=== PATIENT | male | born 1985 | race African-American/Black ===

== ENCOUNTER 2019-11-23 07:36 | Emergency (ER) | payer MEDICAID, OTHER ==
[2019-11-23 07:43] VITALS: BP 157/93; PULSE 83; RESP 18; TEMP 98.1
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
[2019-11-23] MEDS ORDERED: traMADol 50 MG STARTER PACK 3 TAB BTL PO STA (08:17)
[2019-11-23] MEDS ORDERED: IBUPROFEN 600 MG TAB PO STA (08:17)
--- NOTE | 2019-11-23 08:24 | XR ---
EXAMINATION TYPE: XR hand complete RT DATE OF EXAM: 11/23/2019 CLINICAL HISTORY: pain TECHNIQUE: Frontal, lateral and oblique images of the right hand are obtained. COMPARISON: None. FINDINGS: There is no acute fracture/dislocation evident. The joint spaces appear within normal limi ts. Soft tissue swelling overlying the dorsum of the hand. IMPRESSION: There is no acute fracture or dislocation ICD 10 NO FRACTURE, INITIAL EVALUATION
--- NOTE | 2019-11-23 08:25 | XR ---
EXAMINATION TYPE: XR wrist complete RT DATE OF EXAM: 11/23/2019 CLINICAL HISTORY: pain TECHNIQUE: Frontal, lateral and oblique images of the right wrist are obtained. COMPARISON: None. FINDINGS: There is no acute fracture/dislocation evident. The joint spaces appear within normal limits. The o verlying soft tissue appears unremarkable. IMPRESSION: There is no acute fracture or dislocation seen. ICD 10 NO FRACTURE, INITIAL EVALUATION
== END 2019-11-23 09:23 | disposition home or self-care (01) ==
LOC: EC 07:36
DX: S60.221A Contusion of right hand, initial encounter (principal); F17.200 Nicotine dependence, unspecified, uncomplicated; V47.5XXA Car driver injured in collision with fixed or stationary object in traffic accident, initial encounter; Y92.410 Unspecified street and highway as the place of occurrence of the external cause; Y93.89 Activity, other specified
CPT/HCPCS: 29125; 99284

== ENCOUNTER 2020-04-02 14:35 | Inpatient (IN) | payer MEDICAID, OTHER ==
[2020-04-02] MEDS ORDERED: SODIUM CHLORIDE 0.9% 1,000 ML IV STA (15:14)
--- NOTE | 2020-04-02 15:24 | ED ---
General Adult HPI - General Chief complaint: Seizure Stated complaint: Seizures Time Seen by Provider: 04/02/20 14:48 Source: patient, EMS, RN notes reviewed Mode of arrival: EMS Limitations: no limitations - History of Present Illness Initial comments: 35-year-old male with a past medical history of pneumothorax presents to the emergency room for possible seizure. Patient was apparently dropping off his children at the end of his driveway. He was walking back up his driveway when patient apparently lost consciousness. He does not recall any lightheadedness or dizziness preceding this. This was witnessed and according to his cousin patient was jerking for about 2 minutes before he came to. Patient did not lose bladder or bowel function. Patient did not bite his tongue. Patient was post ictal on EMS arrival to the scene. Patient has no other complaints at this time including shortness of breath, chest pain, abdominal pain, nausea or vomiting, headache, or visual changes. - Related Data Previous Rx's Medication Instructions Recorded Mirtazapine [Remeron] 15 mg PO HS #30 tab 04/09/14 Ibuprofen [Motrin] 600 mg PO Q6HR PRN #20 tab 11/23/19 Allergies Allergy/AdvReac Type Severity Reaction Status Date / Time No Known Allergies Allergy Verified 11/23/19 07:43 Review of Systems ROS Statement: Those systems with pertinent positive or pertinent negative responses have been documented in the HPI. ROS Other: All systems not noted in ROS Statement are negative. Past Medical History Past Medical History: No Reported History Additional Past Medical History / Comment(s): PNEUMOTHORAX History of Any Multi-Drug Resistant Organisms: None Reported Additional Past Surgical History / Comment(s): LEFT ARM SURGERY, Past Anesthesia/Blood Transfusion Reactions: No Reported Reaction Past Psychological History: Anxiety, Depression Past Alcohol Use History: Occasional Past Drug Use History: Marijuana General Exam Limitations: no limitations General appearance: alert, in no apparent distress Head exam: Present: atraumatic, normocephalic, normal inspection Eye exam: Present: normal appearance, PERRL, EOMI. Absent: scleral icterus, conjunctival injection, periorbital swelling ENT exam: Present: normal exam, mucous membranes moist Neck exam: Present: normal inspection, full ROM. Absent: tenderness, men ingismus, lymphadenopathy Respiratory exam: Present: normal lung sounds bilaterally. Absent: respiratory distress, wheezes, rales, rhonchi, stridor Cardiovascular Exam: Present: regular rate, normal rhythm, normal heart sounds. Absent: systolic murmur, diastolic murmur, rubs, gallop, clicks Neurological exam: Present: alert, oriented X3, other (GCS 15) Course Vital Signs 04/02/20 14:38 Temperature 98.8 F Pulse Rate 102 H Respiratory 18 Rate Blood Pressure 151/98 O2 Sat by Pulse 97 Oximetry EKG Findings - EKG Comments: EKG Findings:: Normal sinus rhythm, ventricular rate 95, AR interval 146, QTC 452 Medical Decision Making - Medical Decision Making Upon further history patient reports that he quit drinking alcohol 2 days ago because of his probation. Reports he was drinking a fifth a day until that time. Patient likely had an alcohol withdrawal related seizure. CBC is unremarkable. CMP does show some hyperbilirubinemia and transaminitis consistent with chronic alcoholism. Urinalysis does show hematuria, patient denies abdominal or back pain. Patient was started on CIWA protocol. Will be admitted for further management. pipe assembly worker consulted. - Lab Data Result diagrams: 04/02/20 15:18 04/02/20 15:18 Lab Results 04/02/20 04/02/20 04/02/20 Range/Units 15:18 15:18 16:03 WBC 7.3 (3.8-10.6) k/uL RBC 5.01 (4.30-5.90) m/uL Hgb 15.7 (13.0-17.5) gm/dL Hct 47.7 (39.0-53.0) % MCV 95.2 (80.0-100.0) fL MCH 31.3 (25.0-35.0) pg MCHC 32.9 (31.0-37.0) g/dL RDW 14.6 (11.5-15.5) % Plt Count 211 (150-450) k/uL Neutrophils % 73 % Lymphocytes % 18 % Monocytes % 6 % Eosinophils % 0 % Basophils % 1 % Neutrophils # 5.4 (1.3-7.7) k/uL Lymphocytes # 1.3 (1.0-4.8) k/uL Monocytes # 0.5 (0-1.0) k/uL Eosinophils # 0.0 (0-0.7) k/uL Basophils # 0.0 (0-0.2) k/uL Sodium 135 L (137-145) mmol/L Potassium 3.4 L (3.5-5.1) mmol/L Chloride 101 (98-107) mmol/L Carbon Dioxide 23 (22-30) mmol/L Anion Gap 11 mmol/L BUN 9 (9-20) mg/dL Creatinine 0.90 (0.66-1.25) mg/dL Est GFR (CKD-EPI)AfAm >90 (>60 ml/min/1.73 sqM) Est GFR (CKD-EPI)NonAf >90 (>60 ml/min/1.73 sqM) Glucose 112 H (74-99) mg/dL Calcium 9.9 (8.4-10.2) mg/dL Magnesium 1.6 (1.6-2.3) mg/dL Total Bilirubin 2.7 H (0.2-1.3) mg/dL AST 134 H (17-59) U/L ALT 36 (4-49) U/L Alkaline Phosphatase 97 (38-126) U/L Total Protein 7.4 (6.3-8.2) g/dL Albumin 4.8 (3.5-5.0) g/dL Urine Color Light Red Urine Appearance Cloudy (Clear) Urine pH 7.0 (5.0-8.0) Ur Specific [place] 1.021 (1.001-1.035) Urine Protein 1+ H (Negative) Urine Glucose (UA) Negative (Negative) Urine Ketones Trace H (Negative) Urine Blood Large H (Negative) Urine Nitrite Negative (Negative) Urine Bilirubin Negative (Negative) Urine Urobilinogen 4.0 (<2.0) mg/dL Ur Leukocyte Esterase Moderate H (Negative) Urine RBC >182 H (0-5) /hpf Urine WBC 35 H (0-5) /hpf Ur Squamous Epith Cells 1 (0-4) /hpf Hyaline Casts 22 H (0-2) /lpf Urine Mucus Few H (None) /hpf Urine Opiates Screen Not Detected (NotDetected) Ur Oxycodone Screen Not Detected (NotDetected) Urine Methadone Screen Not Detected (NotDetected) Ur Propoxyphene Screen Not Detected (NotDetected) Ur Barbiturates Screen Not Detected (NotDetected) U Tricyclic Antidepress Not Detected (NotDetected) Ur Phencyclidine Scrn Not Detected (NotDetected) Ur Amphetamines Screen Not Detected (NotDetected) U Methamphetamines Scrn Not Detected (NotDetected) U Benzodiazepines Scrn Not Detected (NotDetected) Urine Cocaine Screen Not Detected (NotDetected) U Marijuana (THC) Screen Not Detected (NotDetected) Serum Alcohol <10 mg/dL Disposition Clinical Impression: Alcohol withdrawal, Alcohol withdrawal seizure Disposition: ADMITTED IP TO THIS HOSP Condition: Fair Is patient prescribed a controlled substance at d/c from ED?: No Referrals: None,Stated [Primary Care Provider] - 1-2 days Time of Disposition: 16:33
[2020-04-02 15:31] LABS: Basophils % (A) 1 %; Eosinophils % (A) 0 %; HCT 47.7 % (39.0-53.0); HGB 15.7 gm/dL (13.0-17.5); Lymphocytes # (A) 1.3 k/uL (1.0-4.8); Lymphocytes % (A) 18 %; MCH 31.3 pg (25.0-35.0); MCHC 32.9 g/dL (31.0-37.0); MCV 95.2 fL (80.0-100.0); Mean Platelet Volume 7.5; Monocytes # (A) 0.5 k/uL (0-1.0); Monocytes % (A) 6 %; Neutrophils # (A) 5.4 k/uL (1.3-7.7); Neutrophils % (A) 73 %; Platelet Count 211 k/uL (150-450); RBC 5.01 m/uL (4.30-5.90); RDW 14.6 % (11.5-15.5); WBC 7.3 k/uL (3.8-10.6)
[2020-04-02 15:50] LABS: ALT 36 U/L (4-49); AST 134 U/L (17-59); African American GFR (CKD) >90 (>60 ml/min/1.73 sqM); Albumin 4.8 g/dL (3.5-5.0); Alcohol <10 mg/dL; Alkaline Phosphatase 97 U/L (38-126); Anion Gap 11 mmol/L; Blood Urea Nitrogen 9 mg/dL (9-20); Calcium 9.9 mg/dL (8.4-10.2); Carbon Dioxide 23 mmol/L (22-30); Chloride 101 mmol/L (98-107); Glucose 112 mg/dL (74-99); Magnesium 1.6 mg/dL (1.6-2.3); Non-African American GFR(CKD) >90 (>60 ml/min/1.73 sqM); Potassium 3.4 mmol/L (3.5-5.1); Sodium 135 mmol/L (137-145); Total Bilirubin 2.7 mg/dL (0.2-1.3); Total Protein 7.4 g/dL (6.3-8.2)
--- NOTE | 2020-04-02 15:50 | CT ---
EXAMINATION TYPE: CT brain wo con DATE OF EXAM: 04/02/2020 COMPARISON: CT brain April 20, 2013 HISTORY: Seizure activity. Pt states LOC but no hx of seizures CT DLP: 1202.4 mGycm. Automated Exposure Control for Dose Reduction was Utilized. TECHNIQUE: CT scan of the head is performed without contrast. FINDINGS: There is no acute intracranial hemorrhage, mass effect, or midline shift identified. The ventricles and sulci are within normal limits in size. Patel-white matter differentiation is maintain ed. The globes are intact and the visualized sinuses are clear. The calvarium is intact. IMPRESSION: No acute intracranial hemorrhage or midline shift is seen. No significant change from pr ior.
--- NOTE | 2020-04-02 15:51 | XR ---
EXAMINATION TYPE: XR chest 2V DATE OF EXAM: 04/02/2020 COMPARISON: Chest x-ray September 04, 2013. HISTORY: Seizure and weakness. TECHNIQUE: Frontal and lateral views of the chest are obtained. FINDINGS: There is no focal air space opacity, pleural effusion, or pneumothorax seen. Diminished in spiration on current study with new mild cardiomegaly. Overlying EKG leads are present currently. Th e osseous structures are intact. IMPRESSION: Mild cardiomegaly without acute pulmonary process. Finding may be exaggerated by poor in spiration.
[2020-04-02] MEDS ORDERED: LORazepam 2 MG/ML INJ IV STA (16:04)
[2020-04-02 16:18] LABS: Appearance,Urine Cloudy (Clear); Bilirubin,Urine Negative (Negative); Blood,Urine Large (Negative); Color,Urine Light Red; Glucose,Urine (UA) Negative (Negative); Hyaline Casts,Urine 22 /lpf (0-2); Ketones,Urine Trace (Negative); Leukocyte Esterase,Urine Moderate (Negative); Mucus,Urine Few /hpf; Nitrite,Urine Negative (Negative); Protein,Urine 1+ (Negative); RBC,Urine >182 /hpf (0-5); Specific Gravity,Urine 1.021 (1.001-1.035); Squamous Epithelial Cell,Urine 1 /hpf (0-4); WBC,Urine 35 /hpf (0-5)
[2020-04-02 16:20] LABS: Amphetamine Screen,Urine Not Detected (NotDetected); Barbiturate Screen,Urine Not Detected (NotDetected); Benzodiazepines Screen,Urine Not Detected (NotDetected); Cocaine Screen,Urine Not Detected (NotDetected); Methadone Screen, Urine Not Detected (NotDetected); Opiate Screen,Urine Not Detected (NotDetected); Oxycodone Screen, Urine Not Detected (NotDetected); Phencyclidine Screen,Urine Not Detected (NotDetected); Tricyclic Antidepressant,Urine Not Detected (NotDetected); Urn Cannabinoid Scrn Not Detected (NotDetected)
[2020-04-02] MEDS ORDERED: NALOXONE 0.4 MG/ML 1 ML VIAL IV PRN (16:28)
[2020-04-02] MEDS ORDERED: THIAMINE 100 MG/ML 2 ML VIAL IM STA (16:29)
[2020-04-02] MEDS ORDERED: LORazepam 2 MG/ML INJ IV PRN ×3 (16:29)
[2020-04-02] MEDS: SODIUM CHLORIDE 0.9% 1,000 ML IV SCH (17:26)
[2020-04-02] MEDS: DIAZEPAM 5 MG/ML 2 ML INJ IVP SCH (17:27)
[2020-04-02] MEDS: PENICILLIN V POTASSIUM 250 MG TAB PO SCH ×2 (17:27→23:37)
[2020-04-02] MEDS: THIAMINE 100 MG TAB PO SCH (18:46)
[2020-04-02] MEDS ORDERED: POTASSIUM CHLORIDE ER 20 MEQ TAB.ER PO STA (21:27)
[2020-04-02] MEDS: NICOTINE 21MG/24HR PATCH TRANSDERM SCH (21:40)
[2020-04-03] MEDS: SODIUM CHLORIDE 0.9% 1,000 ML IV SCH ×4 (01:41→20:37)
[2020-04-03] MEDS: DIAZEPAM 5 MG/ML 2 ML INJ IVP SCH (01:42)
[2020-04-03] MEDS: PENICILLIN V POTASSIUM 250 MG TAB PO SCH ×4 (06:00→23:24)
[2020-04-03] MEDS: THIAMINE 100 MG TAB PO SCH ×2 (06:00→17:06)
[2020-04-03 07:47] LABS: African American GFR (CKD) >90 (>60 ml/min/1.73 sqM); Anion Gap 7 mmol/L; Blood Urea Nitrogen 7 mg/dL (9-20); Calcium 9.1 mg/dL (8.4-10.2); Carbon Dioxide 24 mmol/L (22-30); Chloride 106 mmol/L (98-107); Glucose 107 mg/dL (74-99); Non-African American GFR(CKD) >90 (>60 ml/min/1.73 sqM); Potassium 3.5 mmol/L (3.5-5.1); Sodium 137 mmol/L (137-145)
[2020-04-03] MEDS ORDERED: MAGNESIUM SULFATE-D5W PMX 1 GM in DEXTROSE/WATER 1 100ML.BAG IVPB ONE (08:44)
[2020-04-03] MEDS: ENOXAPARIN 40 MG/0.4 ML SYRINGE SQ SCH (09:15)
[2020-04-03] MEDS: NICOTINE 21MG/24HR PATCH TRANSDERM SCH (09:15)
[2020-04-03] MEDS: FAMOTIDINE 20 MG TAB PO SCH ×2 (09:15→20:37)
--- NOTE | 2020-04-03 09:35 | P.HPIM ---
History of Present Illness 35-year-old male with a past medical history of pneumothorax presents to the emergency room for possible syncope. Patient was apparently dropping off his children at the end of his driveway. He was walking back up his driveway when patient apparently lost consciousness. He does not recall any lightheadedness or dizziness preceding this. This was witnessed and according to his cousin patient was jerking for about 2 minutes before he came to. Patient did not lose bladder or bowel function. Patient did havetongue. Patient was post ictal on EMS arrival to the scene. Patient has no other complaints at this time including shortness of breath, chest pain, abdominal pain, nausea or vomiting, headache, or visual changes.patient is an alcoholic was drinking about one fifth of alcohol everyday quit drinking 5 days ago. Review of Systems REVIEW OF SYSTEMS: CONSTITUTIONAL: No fever, no malaise, no fatigue. HEENT: No recent visual problems or hearing problems. Denied any sore throat. CARDIOVASCULAR: No chest pain, orthopnea, PND, no palpitations. PULMONARY: No shortness of breath, no cough, no hemoptysis. GASTROINTESTINAL: No diarrhea, no nausea, no vomiting, no abdominal pain. NEUROLOGICAL: No headaches, no weakness, no numbness. HEMATOLOGICAL: Denies any bleeding or petechiae. GENITOURINARY: Denies any burning micturition, frequency, or urgency. MUSCULOSKELETAL/RHEUMATOLOGICAL: Denies any joint pain, swelling, or any muscle pain. ENDOCRINE: Denies any polyuria or polydipsia. The rest of the 14-point review of systems is negative. Past Medical History Past Medical History: No Reported History Additional Past Medical History / Comment(s): PNEUMOTHORAX History of Any Multi-Drug Resistant Organisms: None Reported Past Surgical History: No Surgical Hx Reported Additional Past Surgical History / Comment(s): LEFT ARM SURGERY, Past Anesthesia/Blood Transfusion Reactions: No Reported Reaction Past Psychological History: Anxiety, Depression Smoking Status: Current every day smoker Past Alcohol Use History: Daily Past Drug Use History: Marijuana - Past Family History Father Family Medical History: Unable to Obtain Mother Family Medical History: Coronary Artery Disease (CAD) Medications and Allergies Home Medications Medication Instructions Recorded Confirmed Type Loratadine [Claritin] 10 mg PO DAILY PRN 04/02/20 04/02/20 History diphenhydrAMINE [Benadryl] 25 mg PO DAILY PRN 04/02/20 04/02/20 History Allergies Allergy/AdvReac Type Severity Reaction Status Date / Time No Known Allergies Allergy Verified 04/02/20 16:54 Physical Exam Vitals: Vital Signs Temp Pulse Pulse Resp BP BP Pulse Ox 04/03/20 04:00 99.2 F 86 18 149/88 98 04/03/20 00:00 63 17 163/104 99 04/02/20 20:39 98.6 F 104 H 16 162/104 98 04/02/20 20:00 98.6 F 104 H 16 162/104 98 04/02/20 18:46 98.4 F 91 20 159/96 98 04/02/20 16:50 98.6 F 88 18 148/80 98 04/02/20 14:38 98.8 F 102 H 18 151/98 97 Intake and Output 04/02/20 04/03/20 04/03/20 22:59 06:59 14:59 Intake Total 1350 240 Balance 1350 240 Intake: IV 1350 Sodium Chloride 0.9% 1, 1350 000 ml @ 150 mls/hr IV . Q6H40M [facility] Rx#:[id number] Oral 240 Other: Voiding Method Toilet # Voids 1 1 Weight 81.647 kg 82.1 kg PHYSICAL EXAMINATION: GENERAL: The patient is alert and oriented x3, not in any acute distress. Well developed, well nourished. patient does have some tremor HEENT: Pupils are round and equally reacting to light. EOMI. No scleral icterus. No conjunctival pallor. Normocephalic, atraumatic. No pharyngeal erythema. No thyromegaly. CARDIOVASCULAR: S1 and S2 present. No murmurs, rubs, or gallops. PULMONARY: Chest is clear to auscultation, no wheezing or crackles. ABDOMEN: Soft, nontender, nondistended, normoactive bowel sounds. No palpable organomegaly. MUSCULOSKELETAL: No joint swelling or deformity. EXTREMITIES: No cyanosis, clubbing, or pedal edema. NEUROLOGICAL: Gross neurological examination did not reveal any focal deficits. SKIN: No rashes. Results CBC & Chem 7: 04/02/20 15:18 04/03/20 07:04 Labs: Abnormal Lab Results - Last 24 Hours (Table) 04/02/20 04/02/20 04/03/20 Range/Units 15:18 16:03 07:04 Sodium 135 L (137-145) mmol/L Potassium 3.4 L (3.5-5.1) mmol/L BUN 7 L (9-20) mg/dL Glucose 112 H 107 H (74-99) mg/dL Total Bilirubin 2.7 H (0.2-1.3) mg/dL AST 134 H (17-59) U/L Urine Protein 1+ H (Negative) Urine Ketones Trace H (Negative) Urine Blood Large H (Negative) Ur Leukocyte Esterase Moderate H (Negative) Urine RBC >182 H (0-5) /hpf Urine WBC 35 H (0-5) /hpf Hyaline Casts 22 H (0-2) /lpf Urine Mucus Few H (None) /hpf Microbiology - Last 24 Hours (Table) 04/02/20 16:03 Urine Culture - Preliminary Urine,Voided Thrombosis Risk Factor Assmnt - Choose All That Apply Any of the Below Risk Factors Present?: Yes Each Factor Represents 1 point: Obesity (BMI >25) Other Risk Factors: No Other congenital or acquired thrombophilia - If yes, enter type in comment: No Thrombosis Risk Factor Assessment Total Risk Factor Score: 1 Thrombosis Risk Factor Assessment Level: Low Risk Assessment and Plan Plan: -possible seizure or syncope: We'll obtain EEG sleep and awake patient may have alcohol withdrawal seizure. Patient will be continued on all call withdrawal precautions. Patient last drink was 5 days so probably he is to worse and off alcohol withdrawal. 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
[2020-04-04] MEDS: IBUPROFEN 600 MG TAB PO PRN ×2 (02:08→13:37)
[2020-04-04] MEDS: THIAMINE 100 MG TAB PO SCH (05:57)
[2020-04-04] MEDS: PENICILLIN V POTASSIUM 250 MG TAB PO SCH ×2 (05:57→13:37)
[2020-04-04 08:11] LABS: ALT 34 U/L (4-49); AST 60 U/L (17-59); African American GFR (CKD) >90 (>60 ml/min/1.73 sqM); Albumin 4.3 g/dL (3.5-5.0); Alkaline Phosphatase 104 U/L (38-126); Anion Gap 6 mmol/L; Blood Urea Nitrogen 9 mg/dL (9-20); Calcium 9.3 mg/dL (8.4-10.2); Carbon Dioxide 25 mmol/L (22-30); Chloride 107 mmol/L (98-107); Glucose 83 mg/dL (74-99); Magnesium 1.9 mg/dL (1.6-2.3); Non-African American GFR(CKD) >90 (>60 ml/min/1.73 sqM); Potassium 3.9 mmol/L (3.5-5.1); Sodium 138 mmol/L (137-145); Total Bilirubin 1.3 mg/dL (0.2-1.3); Total Protein 7.1 g/dL (6.3-8.2)
[2020-04-04] MEDS: NICOTINE 21MG/24HR PATCH TRANSDERM SCH (08:36)
[2020-04-04] MEDS: FAMOTIDINE 20 MG TAB PO SCH (08:36)
[2020-04-04] MEDS: ENOXAPARIN 40 MG/0.4 ML SYRINGE SQ SCH (08:36)
[2020-04-04] MEDS: SODIUM CHLORIDE 0.9% 1,000 ML IV SCH (08:37)
[2020-04-04 08:41] VITALS: RESP 16; TEMP 97.6
--- NOTE | 2020-04-04 11:20 | P.DS ---
Providers Date of admission: 04/02/20 16:28 Attending physician: Joel Rodríguez Primary care physician: Stated None Hospital Course: 35-year-old male with a past medical history of pneumothorax presents to the emergency room for possible syncope. Patient was apparently dropping off his children at the end of his driveway. He was walking back up his driveway when patient apparently lost consciousness. He does not recall any lightheadedness or dizziness preceding this. This was witnessed and according to his cousin patient was jerking for about 2 minutes before he came to. Patient did not lose bladder or bowel function. Patient did havetongue. Patient was post ictal on EMS arrival to the scene. Patient has no other complaints at this time including shortness of breath, chest pain, abdominal pain, nausea or vomiting, headache, or visual changes.patient is an alcoholic was drinking about one fifth of alcohol everyday quit drinking 5 days ago. 04/04/2020 Patient doesn't have any significant withdrawals today patient will undergo EEG if that's negative patient will be discharged patient probably has alcohol withdrawal seizures.patient's liver enzymes are better. PHYSICAL EXAMINATION: GENERAL: The patient is alert and oriented x3, not in any acute distress. Well developed, well nourished. HEENT: Pupils are round and equally reacting to light. EOMI. No scleral icterus. No conjunctival pallor. Normocephalic, atraumatic. No pharyngeal erythema. No thyromegaly. CARDIOVASCULAR: S1 and S2 present. No murmurs, rubs, or gallops. PULMONARY: Chest is clear to auscultation, no wheezing or crackles. ABDOMEN: Soft, nontender, nondistended, normoactive bowel sounds. No palpable organomegaly. MUSCULOSKELETAL: No joint swelling or deformity. EXTREMITIES: No cyanosis, clubbing, or pedal edema. NEUROLOGICAL: Gross neurological examination did not reveal any focal deficits. SKIN: No rashes. Assessment and Plan Plan: -possible seizure : EEG is pending was negative the EEG results if it's normal patient will be discharged today -Possibly of syncope , echocardiac time is pending andabnormalityontelemetryovernight. -Alcohol abuse -alcohol withdrawal: Management as mentioned above thiamine multivitamin supplementation -mild alcoholic hepatitisimproved -Hyponatremia: improved -Hypokalemia : Replaced Patient Condition at Discharge: Fair Plan - Discharge Summary Discharge Rx Participant: Yes New Discharge Prescriptions: New Amoxic-Pot Clav 875-125Mg [Augmentin 875-125] 1 tab PO Q12HR 5 Days #10 tab No Action diphenhydrAMINE [Benadryl] 25 mg PO DAILY PRN PRN Reason: Allergy Symptoms Loratadine [Claritin] 10 mg PO DAILY PRN PRN Reason: Allergy Symptoms Discharge Medication List Loratadine [Claritin] 10 mg PO DAILY PRN 04/02/20 [History] diphenhydrAMINE [Benadryl] 25 mg PO DAILY PRN 04/02/20 [History] Amoxic-Pot Clav 875-125Mg [Augmentin 875-125] 1 tab PO Q12HR 5 Days #10 tab 04/04/20 [Rx] Follow up Appointment(s)/Referral(s): Alex Najera MD [REFERRING] - 1 Week Patient Instructions/Handouts: Alcohol Withdrawal (DC) Discharge Disposition: HOME SELF-CARE
[2020-04-04 11:38] VITALS: BP 154/102; PULSE 60
--- NOTE | 2020-04-04 12:01 | ECHOF ---
Referral Reason:syncope MEASUREMENTS -------- HEIGHT: 180.3 cm WEIGHT: 82.5 kg BP: 169/107 IVSd: 1.2 cm (0.6 - 1.1) LVIDd: 4.2 cm (3.9 - 5.3) LVPWd: 1.3 cm (0.6 - 1.1) EDV(Teich): 80 ml IVSs: 2.2 cm LVIDs: 2.9 cm LVPWs: 1.9 cm %IVS Thck: 81 % ESV(Teich): 31 ml EF(Teich): 61 % %FS: 32 % SV(Teich): 49 ml RVIDd: 3.2 cm (< 3.3) IVC: 14.99 mm LALs A4C: 4.9 cm LAAs A4C: 14.1 cm LAESV A-L A4C: 34 ml LAESV MOD A4C: 32 ml LALs A2C: 4.3 cm LAAs A2C: 12.2 cm LAESV A-L A2C: 29 ml LAESV MOD A2C: 27 ml LAESV(A-L): 33 ml LAESV Index (A-L): 16.48 ml/m Ao Diam: 3.1 cm (2.0 - 3.7) LA Diam: 3.4 cm (2.7 - 3.8) AV Cusp: 2.2 cm (1.5 - 2.6) EPSS: 1.0 cm MV E Oc: 0.38 m/s MV DecT: 191 ms MV Dec [place]: 2.0 m/s MV A Oc: 0.64 m/s MV E/A Ratio: 0.59 MV PHT: 55 ms MR Vmax: 0.73 m/s MR maxP.14 mmHg AV Vmax: 0.77 m/s AV maxP.40 mmHg TR Vmax: 0.93 m/s TR maxP.46 mmHg RAP: 5.00 mmHg RVSP: 8.46 mmHg MV EF SLOPE: 0.00 mm/s (70 - 150) MV EXCURSION: 18.05 mm (> 18.000) FINDINGS -------- This was a technically good study. The left ventricular size is normal. There is mild concentric left ventricular hypertrophy. Overa ll left ventricular systolic function is normal with, an EF between 55 - 60 %. The diastolic fillin g pattern is normal for the age of the patient 5.74. The right ventricle is normal in size. RV Promident The left atrial size is normal. Normal LA size by volume 22+/-6 ml/m2. The right atrial size is normal. Interatrial and interventricular septum intact. The aortic valve is trileaflet and appears structurally normal. The mitral valve is normal. There is trace mitral regurgitation. The tricuspid valve appears structurally normal. Trace tricuspid regurgitation present. Right sergio tricular systolic pressure is normal at < 35 mmHg. There is no pulmonic regurgitation present. The aortic root size is normal. Normal inferior vena cava with normal inspiratory collapse consistent with estimated right atrial pre ssure of 5 mmHg. There is no pericardial effusion. CONCLUSIONS -------- 1. The left ventricular size is normal. 2. There is mild concentric left ventricular hypertrophy. 3. Overall left ventricular systolic function is normal with, an EF between 55 - 60 %. 4. The diastolic filling pattern is normal for the age of the patient 5.74 5. There is trace mitral regurgitation. 6. Trace tricuspid regurgitation present. 7. There is no pericardial effusion. RN VISITING: Xiomara Rodriguez RDCS
--- NOTE | 2020-04-04 13:07 | EEG ---
ELECTROENCEPHALOGRAM REPORT DATE OF SERVICE: 04/04/2020 . PREAMBLE: This is a 35-year-old male with alcohol withdrawal seizure. This study is performed to evaluate for any epileptiform activity. EEG FINDINGS: This is a 21 channel EEG recording utilizing 10-20 international system with referential and bipolar montages. Background consists of well developed, well regulated, moderate voltage activity in 8-9 hertz alpha. Background is posterior dominant and reactive to eye opening and closing. Photic driving response was seen with some flash frequencies. Drowsiness was seen with appearance of bilaterally symmetric theta frequency rhythm. Some brief stage 2 sleep was seen with presence of some vertex waves. Sweat artifact is noted. No focal or generalized epileptiform activity was seen. EKG rhythm lead revealed no obvious arrhythmia. IMPRESSION: This is a normal EEG during wakefulness, drowsiness, and some stage 2 sleep. MMCLAYTONL / IJN: [id number] / MTDD
== END 2020-04-04 15:50 | disposition home or self-care (01) | DRG 897 ==
LOC: EC 14:35 → 3SCARD 16:28
PROVIDERS: ADMIT Internal Medicine; ATTEND Internal Medicine
DX: F10.230 Alcohol dependence with withdrawal, uncomplicated (principal); E87.1 Hypo-osmolality and hyponatremia; R56.9 Unspecified convulsions; K70.10 Alcoholic hepatitis without ascites; E87.6 Hypokalemia; F41.9 Anxiety disorder, unspecified; F32.9 Major depressive disorder, single episode, unspecified; R31.9 Hematuria, unspecified; K04.7 Periapical abscess without sinus; F17.200 Nicotine dependence, unspecified, uncomplicated; R55 Syncope and collapse; Y90.0 Blood alcohol level of less than 20 mg/100 ml; Z87.09 Personal history of other diseases of the respiratory system; Z98.890 Other specified postprocedural states; Z82.49 Family history of ischemic heart disease and other diseases of the circulatory system
CPT/HCPCS: 36415; 70450; 71046; 80048; 80053; 80306; 80320; 81001; 83735; 85025; 87086; 93005; 93306; 95816; 96361; 96372; 96374; 96375; 99285

== ENCOUNTER 2020-07-14 11:47 | Emergency (ER) | payer MEDICAID, OTHER ==
[2020-07-14] MEDS ORDERED: LIDOCAINE 1% INJ 10MG/ML (20 ML MDV) SQ ONE (12:07)
[2020-07-14] MEDS ORDERED: LORazepam 2 MG/ML INJ IM STA (12:15)
[2020-07-14] MEDS ORDERED: ACETAMINOPHEN TAB 500 MG TAB PO STA (12:38)
--- NOTE | 2020-07-14 13:03 | XR ---
EXAMINATION TYPE: XR chest 2V DATE OF EXAM: 07/14/2020 COMPARISON: 04/01/2020 HISTORY: 35-year-old male with fever TECHNIQUE: Frontal and lateral views FINDINGS: The cardiomediastinal silhouette, aorta, and pulmonary vasculature are within normal limits. Increase d retrosternal clear space and mild hyperinflation. Lungs and pleural spaces are clear. IMPRESSION: COPD with mild emphysema. No acute cardiopulmonary process.
[2020-07-14] MEDS ORDERED: DIPH,PERTUS(ACELL)TETVAC-LF 0.5 ML VIAL IM ONE (13:06)
--- NOTE | 2020-07-14 13:09 | ED ---
General Adult HPI - General Chief complaint: Wound/Laceration Stated complaint: Facial Injury Time Seen by Provider: 07/14/20 12:03 Source: patient, RN notes reviewed Mode of arrival: ambulatory Limitations: no limitations - History of Present Illness Initial comments: 35-year-old male presents to the emergency room for a chief complaint of fall. Patient states she was carrying a [place] tree in a box when he tripped over something on the floor and fell hitting his face against a stove. He did not lose consciousness. He did not hit his head. Patient states he was not lightheaded prior to this fall. Patient was noted to have a low-grade fever of 100.4 on arrival. He denies any cough congestion nausea vomiting diarrhea abdominal pain chest pain shortness of breath. He is very anxious to get stitches as he has never had these before.Patient has no other complaints at this time including shortness of breath, chest pain, abdominal pain, nausea or vomiting, headache, or visual changes. - Related Data Home Medications Medication Instructions Recorded Confirmed Loratadine [Claritin] 10 mg PO DAILY PRN 04/02/20 04/02/20 diphenhydrAMINE [Benadryl] 25 mg PO DAILY PRN 04/02/20 04/02/20 Previous Rx's Medication Instructions Recorded Amoxic-Pot Clav 875-125Mg 1 tab PO Q12HR 5 Days #10 tab 04/04/20 [Augmentin 875-125] Thiamine [Vitamin B-1] 100 mg PO DAILY #30 tab 04/04/20 Amoxicillin/Potassium Clav 1 tab PO Q12HR #20 tab 07/14/20 [Augmentin 875-125 Tablet] Allergies Allergy/AdvReac Type Severity Reaction Status Date / Time No Known Allergies Allergy Verified 07/14/20 11:52 Review of Systems ROS Statement: Those systems with pertinent positive or pertinent negative responses have been documented in the HPI. ROS Other: All systems not noted in ROS Statement are negative. Past Medical History Past Medical History: Seizure Disorder Additional Past Medical History / Comment(s): PNEUMOTHORAX History of Any Multi-Drug Resistant Organisms: None Reported Past Surgical History: No Surgical Hx Reported Additional Past Surgical History / Comment(s): LEFT ARM SURGERY, Past Anesthesia/Blood Transfusion Reactions: No Reported Reaction Past Psychological History: Anxiety, Depression Smoking Status: Current every day smoker Past Alcohol Use History: Daily, Occasional Past Drug Use History: None Reported - Past Family History Father Family Medical History: Unable to Obtain Mother Family Medical History: Coronary Artery Disease (CAD) General Exam Limitations: no limitations General appearance: alert, anxious Head exam: Present: atraumatic, normocephalic, normal inspection Eye exam: Present: normal appearance, PERRL, EOMI. Absent: scleral icterus, conjunctival injection, periorbital swelling ENT exam: Present: TM's normal bilaterally (Negative hemotympanum), other (She has 1 cm laceration on the inner lower left lip. Contusion to the nasal bridge, no septal hematoma). Absent: normal oropharynx (Patient has slight bleeding from the gum line of teeth 9, 10, and 11. He has a 3 cm laceration over the exterior of the left upper lip and 1 cm on the inside of the upper left lip) Neck exam: Present: normal inspection, full ROM. Absent: tenderness, meningismus, lymphadenopathy Respiratory exam: Present: normal lung sounds bilaterally. Absent: respiratory distress, wheezes, rales, rhonchi, stridor Cardiovascular Exam: Present: regular rate, normal rhythm, normal heart sounds. Absent: systolic murmur, diastolic murmur, rubs, gallop, clicks GI/Abdominal exam: Present: soft, normal bowel sounds. Absent: distended, tenderness, guarding, rebound, rigid Back exam: Absent: vertebral tenderness Neurological exam: Present: alert Course Vital Signs 07/14/20 07/14/20 11:52 12:27 Temperature 98 F 100.4 F H Pulse Rate 102 H 114 H Respiratory 18 18 Rate Blood Pressure 147/89 O2 Sat by Pulse 97 100 Oximetry Procedures - Laceration Laceration #1 Consent Obtained: verbal consent Indication: laceration Site: lip (upper external) Description: linear Depth: [id number] Anesthetic Used: lidocaine 1% Anesthesia Technique: nerve block Amount (mls): 2 Pre-repair: wound explored, irrigated extensively Type of Sutures: nylon Size of Sutures: 5-0 Number of Sutures: 4 Technique: simple, interrupted Patient Tolerated Procedure: well, no complications Laceration #2 Consent Obtained: verbal consent Indication: laceration Site: lip (inner lower) Size (cm): 2 Description: linear Depth: simple, single layer Anesthetic Used: lidocaine 1% Anesthesia Technique: local infiltration Amount (mls): 1 Pre-repair: wound explored, irrigated extensively Type of Sutures: vicryl Size of Sutures: 5-0 Number of Sutures: 1 Technique: simple, interrupted Patient Tolerated Procedure: well, no complications Medical Decision Making - Medical Decision Making 35-year-old male presents for fall. Patient the edge of oven. He doesn't a laceration noted exterior of the left upper lateral. This extends through and through however the interior lacerations on patient does not want sutures. Patient refused to see his mustache for the sutures so they were left lung. Patient also had a repair of the laceration in the lower internal lip. He does have minimal ecchymosis of the left marlee Orbital area. Patient was found to have a low-grade temperature 100.4 and denied any symptoms. Chest x-ray shows COPD with mild emphysema, no acute cardiopulmonary process. CT brain shows lacerations of the lips which are repaired. There is soft tissue swelling overlying the nose with subtle new angulation along the right nasal bone. Suspect a subtle nondisplaced right nasal bone fracture. No septal hematoma. There is progressive Dental disease with multiple caries. There is a new periapical lucency/abscess involving the right maxillary first molar with some dehiscence into the floor of the right maxillary sinus. This could be traumatic dehiscence due to the patient's injuries however a more chronic process is suspected given the presence of severe underlying right maxillary sinus disease. Patient states he has had issues with these teeth for quite some time and needs them removed . However there was a small abscess that I was able to drain with an 18-gauge needle. Patient states he has had increased pain area. This possibly where his low-grade fever is coming from he will be treated with penicillin. At this time patient will follow-up with maxillofacial surgery for this as well as ENT for nasal bone fracture. He will return in 5 days for suture removal. He will return earlier for any worsening symptoms. - Lab Data Lab Results 07/14/20 Range/Units 12:58 Coronavirus (PCR) Not Detected (Not Detectd) Disposition Clinical Impression: Dental abscess, Laceration, Nasal bone fracture Disposition: HOME SELF-CARE Condition: Good Additional Instructions: Please keep stitches clean. He had 4 stitches on your upper lip that need to be removed in the emergency room in 5 days. Return earlier if you see any signs of infection. Take Augmentin as directed for dental pain. He need to follow up with Dr. Thurman who works with maxillofacial surgery given possible damage to your front teeth from the fall as well as extensive dental disease. Follow up with ENT for nasal fracture. Refrain from blowing your nose. [facility] [address] [facility] [address] (existing clients only) New clients: [phone] 1st consult: $50 (includes XRs) Usually 30% less than private dentist for visits after. [facility] [employer] [facility] [employer] Have to pay $50 for Xrays and rest is covered [phone] Prescriptions: Amoxicillin/Potassium Clav [Augmentin 875-125 Tablet] 1 tab PO Q12HR #20 tab Is patient prescribed a controlled substance at d/c from ED?: No Referrals: Diogo Olguin MD [STAFF PHYSICIAN] - 1-2 days Domo Thurman DDS [STAFF PHYSICIAN] - 1-2 days Time of Disposition: 13:50
--- NOTE | 2020-07-14 13:14 | CT ---
EXAMINATION TYPE: CT facial bones wo con DATE OF EXAM: 07/14/2020 COMPARISON: 01/26/2010 HISTORY: 35-year-old male with pain after tripping and fall hitting face on stove. Left sided upper l ip laceration. Left supraorbital injury. TECHNIQUE: Contiguous axial scanning of the facial bones without IV contrast. Coronal reconstructions performed. CT DLP: 840 mGycm Automated exposure control for dose reduction was used. FINDINGS: There is a laceration involving the left anterior upper and lower lips. The underlying mandible and T MJs are intact. The pterygoid plates and zygomatic arches are intact. Visualized intracranial structures and mastoid air cells appear clear. Cerumen within the left internal revenue service agent al auditory canals. There is subtle new angulation along the right nasal bone, axial image 56. Some soft tissue swelling overlying the nose is new. Progressive periodontal disease with multiple dental caries. Periapical lucency involving the right maxillary first molar with some dehiscence into the floor of t he right maxillary sinus and complete opacification here now Mild left supraorbital soft tissue swelling. Underlying orbits and globes appear intact. No facial jennifer ne fracture otherwise seen. IMPRESSION: 1. LACERATIONS INVOLVING THE LEFT ANTERIOR UPPER AND LOWER LIPS. 2. SOFT TISSUE SWELLING OVERLYING THE NOSE WITH SUBTLE NEW ANGULATION ALONG THE RIGHT NASAL BONE. REHAN PECT A SUBTLE NONDISPLACED RIGHT NASAL BONE FRACTURE. 3. PROGRESSIVE PERIODONTAL DISEASE WITH MULTIPLE DENTAL CARIES. NEW PERIAPICAL LUCENCY/ABSCESS INVOLV ING THE RIGHT MAXILLARY FIRST MOLAR WITH SOME DEHISCENCE INTO THE FLOOR OF THE RIGHT MAXILLARY SINUS. THIS COULD BE TRAUMATIC DEHISCENCE DUE TO THE PATIENT'S INJURY. HOWEVER, A MORE CHRONIC PROCESS IS S USPECTED GIVEN THE PRESENCE OF SEVERE UNDERLYING RIGHT MAXILLARY SINUS DISEASE. 4. MILD LEFT SUPRAORBITAL SOFT TISSUE SWELLING. NO ADDITIONAL UNDERLYING FACIAL BONE FRACTURE SEEN.
[2020-07-14 13:16] VITALS: BP 147/89; RESP 18
[2020-07-14] MEDS ORDERED: PENICILLIN VK 500MG STARTER 4 TAB BTL PO STA (13:47)
[2020-07-14 14:10] VITALS: PULSE 100; TEMP 98.6
== END 2020-07-14 14:10 | disposition home or self-care (01) ==
LOC: EC 11:47
DX: S02.2XXA Fracture of nasal bones, initial encounter for closed fracture (principal); S01.511A Laceration without foreign body of lip, initial encounter; R50.9 Fever, unspecified; K04.7 Periapical abscess without sinus; J43.9 Emphysema, unspecified; F17.200 Nicotine dependence, unspecified, uncomplicated; Z20.828 Contact with and (suspected) exposure to other viral communicable diseases; Z23 Encounter for immunization; W10.9XXA Fall (on) (from) unspecified stairs and steps, initial encounter; Y92.009 Unspecified place in unspecified non-institutional (private) residence as the place of occurrence of the external cause
CPT/HCPCS: 99284; 90471; 41800; 12013; 87635; 71046; 70486; 90715; J2060; J2001